=== PATIENT | female | born 1935 | race Caucasian/White ===

== ENCOUNTER → 2017-05-28 | Outpatient (CLI) | payer MEDICARE, OTHER ==
[~2017-05-28] MED LIST: IOPAMIDOL 370 MG/ML 200 ML INFUS..BTL INJ ONE; SODIUM CHLORIDE 0.9% 50ML 0 ML ONE
[2017-05-28 13:29] LABS: BLOOD UREA NITROGEN 26 mg/dL (7-26); BUN/CREATININE RATIO 33 (6-25); EST GLOMERULAR FILTRATION RATE > 60 ML/MIN (60-)
--- NOTE | 2017-05-28 16:57 | Diagnostic Imaging Report ---
EXAMINATION: Head CT without and with contrast HISTORY: Memory loss, follow-up meningioma. COMPARISON: Brain MRI on 08/17/11 and 09/16/2012 TECHNIQUE: Multidetector axial images were obtained without and with contrast from the foramen magnum to the vertex . The images were reconstructed using brain and bone algorithms. Thin section brain images were reformatted into coronal and sagittal planes. Intravenous contrast: 100 mL of Isovue-[id number] Motion/streaking artifact limits the evaluation of the skull base and posterior cranial fossa. FINDINGS: Parenchyma: 1. Mild chronic microvascular ischemic changes. 2. No mass or hemorrhage. No CT evidence of acute territorial vascular insult. 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 The lesion measures about 3 cm AP x 3.2 cm transverse diameter compared to 2.3 cm AP x 2.5 cm transverse on prior MRI dated 09/16/2012. Brain volume: Normal for age. Ventricles: No hydrocephalus or displacement. Arteries: No density suggestive of thrombus. Probable about 7 mm in the right MCA bifurcation. Dural sinuses: No abnormal density. Extra-axial spaces: No abnormal density. Foramen magnum: No mass, Chiari malformation, or basilar invagination. Sella: No obvious mass. Paranasal/mastoid sinuses: Imaged portions unremarkable. Skull/Scalp: No lytic or blastic lesions. No fractures. IMPRESSION: 1. 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 2. Stable mild chronic microvascular ischemic changes. Signed by: Dr. Maria Esther Fernandez M.D. on 05/28/2017 4:54 PM
== END ==
LOC: CT 12:34
PROVIDERS: ATTEND Psychiatry & Neurology Neurology
DX: R41.3 Other amnesia (principal); D32.9 Benign neoplasm of meninges, unspecified
CPT/HCPCS: 36415; 70470; 82565; 84520; Q9967